=== PATIENT | male | born 1990 | race African-American/Black ===

== ENCOUNTER 2017-05-19 18:19 | Emergency (ER) | payer MEDICAID ==
[~2017-05-19] VITALS: Ht 188 cm; Wt 95.5 kg
[2017-05-19] MEDS ORDERED: ARIP2 PO (18:33)
[2017-05-19] MEDS ORDERED: MIRT15 PO (18:33)
[2017-05-19] MEDS ORDERED: LEVE250T55 PO (18:33)
[2017-05-19] MEDS ORDERED: ONDANSETRON HCL 4 MG TABLET PO ONE (20:00)
[2017-05-19 20:31] VITALS: BP 138/80
== END 2017-05-19 20:33 | disposition home or self-care (01) ==
LOC: EMS 18:20
DX: J06.9 Acute upper respiratory infection, unspecified (principal); R11.2 Nausea with vomiting, unspecified; R19.7 Diarrhea, unspecified; F17.210 Nicotine dependence, cigarettes, uncomplicated; F32.9 Major depressive disorder, single episode, unspecified
CPT/HCPCS: 99283; Q0162

== ENCOUNTER 2017-06-18 17:29 | Emergency (ER) | payer MEDICAID ==
[~2017-06-18] VITALS: Ht 188 cm; Wt 90.9 kg
[~2017-06-18 17:29] MED LIST: ARIP2 PO; LEVE250T55 PO; MIRT15 PO
[2017-06-18] MEDS ORDERED: SODIUM CHLORIDE 0.9% 1,000 ML IV ONE (18:00)
[2017-06-18 18:15] LABS: BASOPHILS % (AUTO) 1.1 % (0.0-2.0); EOSINOPHILS % (AUTO) 0.6 % (1.0-6.0); HEMATOCRIT 48.5 % (41-53); HEMOGLOBIN 16.5 g/dL (13.5-17.5); LYMPHOCYTES % (AUTO) 37.1 % (22.0-44.0); MEAN CORPUSCULAR HEMOGLOBIN 28.1 pg (26.0-34.0); MEAN CORPUSCULAR HGB CONC 34.1 G/dL (31.0-37.0); MEAN CORPUSCULAR VOLUME 82 fL (80-100); MONOCYTES # (AUTO) 0.5 K/uL (0.1-1.0); MONOCYTES % (AUTO) 8.9 % (2.0-9.0); NEUTROPHILS # (AUTO) 2.9 K/uL (1.8-7.7); NEUTROPHILS % (AUTO) 52.3 % (40.0-70.0); PLATELET COUNT (AUTO) 247 K/uL (150-450); RED CELL DISTRIBUTION WIDTH 14.4 % (11.5-14.5)
[2017-06-18] MEDS ORDERED: ONDANSETRON HCL 4 MG/2 ML VIAL IVP ONE (18:15)
[2017-06-18 18:40] LABS: ANION GAP 9 mmol/L (8-16); CALCIUM, TOTAL 9.5 mg/dL (8.8-10.5); CARBON DIOXIDE 30 mmol/L (22-29); CHLORIDE 102 mmol/L (98-107); CREATININE 1.03 mg/dL (0.60-1.30); GLOMERULAR FILTR. RATE CALC > 60 mL/min (>60); GLUCOSE,RANDOM 92 mg/dL (70-110); POTASSIUM 4.2 mmol/L (3.5-5.1); SODIUM SERUM 141 mmol/L (136-145); UREA NITROGEN, BLOOD 7 mg/dL (7-18)
[2017-06-18 18:45] LABS: ALANINE AMINOTRANSFERASE 47 U/L (12-78); ALBUMIN 4.1 g/dL (3.4-5.0); ALKALINE PHOSPHATASE 73 U/L (46-116); ASPARTATE AMINOTRANSFERASE 29 U/L (15-37); BILIRUBIN,TOTAL 1.6 mg/dL (0.1-1.0); LIPASE 74 U/L (73-393); TOTAL PROTEIN, SERUM 7.6 g/dL (6.4-8.2)
[2017-06-18 21:28] VITALS: BP 135/80
[2017-06-18] MEDS ORDERED: IBUPROFEN 600 MG TABLET PO ONE (21:45)
== END 2017-06-18 22:34 | disposition home or self-care (01) ==
LOC: EMS 17:32
DX: R10.13 Epigastric pain (principal); R11.2 Nausea with vomiting, unspecified; R51 Headache; F17.210 Nicotine dependence, cigarettes, uncomplicated
CPT/HCPCS: 36415; 70450; 80053; 83690; 85025; 96361; 96374; 99285; J2405; J7030

== ENCOUNTER 2017-06-21 14:06 | Emergency (ER) | payer MEDICAID ==
[~2017-06-21] VITALS: Ht 185.4 cm; Wt 94.0 kg
[~2017-06-21 14:06] MED LIST changes: -ARIP2 PO; -MIRT15 PO
[2017-06-21] MEDS ORDERED: MIRT30TA7 PO (14:54)
[2017-06-21] MEDS ORDERED: LEVE500T8 PO (14:54)
[2017-06-21] MEDS ORDERED: HYDR-3114 PO (14:54)
[2017-06-21] MEDS ORDERED: ONDA4TAB4 PO (14:54)
[2017-06-21] MEDS ORDERED: MIRT15TA PO (14:54)
[2017-06-21] MEDS ORDERED: ARIP15TA7 PO (14:54)
[2017-06-21] MEDS ORDERED: FLUO-125 PO (14:55)
[2017-06-21] MEDS ORDERED: ARIP15TA2 PO (14:55)
[2017-06-21] MEDS ORDERED: LEVE250T PO (14:55)
[2017-06-21] MEDS ORDERED: LevETIRAcetam 500 MG TABLET PO ONE (15:00)
[2017-06-21 15:26] LABS: ANION GAP 6 mmol/L (8-16); CARBON DIOXIDE 28 mmol/L (22-29); CHLORIDE 104 mmol/L (98-107); CREATININE 0.88 mg/dL (0.60-1.30); GLOMERULAR FILTR. RATE CALC > 60 mL/min (>60); GLUCOSE,RANDOM 118 mg/dL (70-110); POTASSIUM 3.5 mmol/L (3.5-5.1); SODIUM SERUM 138 mmol/L (136-145); UREA NITROGEN, BLOOD 9 mg/dL (7-18)
[2017-06-21 15:29] LABS: BASOPHILS % (AUTO) 1.3 % (0.0-2.0); EOSINOPHILS % (AUTO) 0.7 % (1.0-6.0); HEMATOCRIT 44.6 % (41-53); HEMOGLOBIN 15.1 g/dL (13.5-17.5); LYMPHOCYTES # (AUTO) 1.4 K/uL (1.0-4.8); MEAN CORPUSCULAR HEMOGLOBIN 28.1 pg (26.0-34.0); MEAN CORPUSCULAR HGB CONC 33.9 G/dL (31.0-37.0); MEAN CORPUSCULAR VOLUME 83 fL (80-100); MONOCYTES # (AUTO) 0.4 K/uL (0.1-1.0); NEUTROPHILS # (AUTO) 2.5 K/uL (1.8-7.7); PLATELET COUNT (AUTO) 245 K/uL (150-450); RED BLOOD CELL COUNT(AUTO) 5.39 MIL/uL (4.50-5.90); RED CELL DISTRIBUTION WIDTH 14.1 % (11.5-14.5)
[2017-06-21 15:32] LABS: ALANINE AMINOTRANSFERASE 41 U/L (12-78); ALBUMIN 3.6 g/dL (3.4-5.0); ALKALINE PHOSPHATASE 65 U/L (46-116); ASPARTATE AMINOTRANSFERASE 25 U/L (15-37); BILIRUBIN,TOTAL 0.9 mg/dL (0.1-1.0); TOTAL PROTEIN, SERUM 6.8 g/dL (6.4-8.2)
[2017-06-21 16:05] VITALS: BP 124/67
== END 2017-06-21 16:57 | disposition home or self-care (01) ==
LOC: EMS 14:07
DX: G40.909 Epilepsy, unspecified, not intractable, without status epilepticus (principal); F17.210 Nicotine dependence, cigarettes, uncomplicated; Z91.14 Patient's other noncompliance with medication regimen; Z88.6 Allergy status to analgesic agent; Z88.8 Allergy status to other drugs, medicaments and biological substances
CPT/HCPCS: 82962; 99284

== ENCOUNTER 2017-08-12 20:54 | Inpatient (IN) | payer MEDICAID, OTHER ==
[~2017-08-12] VITALS: Ht 188 cm; Wt 113.6 kg
[~2017-08-12 20:54] MED LIST changes: +ARIP15TA2 PO; +FLUO-125 PO; +HYDR-3114 PO; -LEVE250T55 PO; +LEVE500T8 PO; +MIRT15TA PO; +MIRT30TA7 PO; +ONDA4TAB4 PO
[2017-08-12] MEDS ORDERED: MIRT15 PO (21:38)
[2017-08-12] MEDS ORDERED: BUSP15 PO (21:38)
[2017-08-12] MEDS ORDERED: PROZ10 PO (21:38)
[2017-08-13 01:01] LABS: BASOPHILS % (AUTO) 1.3 % (0.0-2.0); EOSINOPHILS % (AUTO) 1.1 % (1.0-6.0); HEMATOCRIT 46.6 % (41-53); HEMOGLOBIN 16.1 g/dL (13.5-17.5); LYMPHOCYTES # (AUTO) 2.8 K/uL (1.0-4.8); LYMPHOCYTES % (AUTO) 38.8 % (22.0-44.0); MEAN CORPUSCULAR HGB CONC 34.6 G/dL (31.0-37.0); MEAN CORPUSCULAR VOLUME 84 fL (80-100); MONOCYTES # (AUTO) 0.7 K/uL (0.1-1.0); MONOCYTES % (AUTO) 9.2 % (2.0-9.0); NEUTROPHILS # (AUTO) 3.6 K/uL (1.8-7.7); NEUTROPHILS % (AUTO) 49.6 % (40.0-70.0); PLATELET COUNT (AUTO) 290 K/uL (150-450); RED BLOOD CELL COUNT(AUTO) 5.55 MIL/uL (4.50-5.90); RED CELL DISTRIBUTION WIDTH 14.2 % (11.5-14.5)
[2017-08-13 01:12] LABS: ANION GAP 9 mmol/L (8-16); CALCIUM, TOTAL 9.1 mg/dL (8.8-10.5); CARBON DIOXIDE 30 mmol/L (22-29); CHLORIDE 103 mmol/L (98-107); GLOMERULAR FILTR. RATE CALC > 60 mL/min (>60); GLUCOSE,RANDOM 98 mg/dL (70-110); POTASSIUM 3.9 mmol/L (3.5-5.1); SODIUM SERUM 142 mmol/L (136-145); UREA NITROGEN, BLOOD 9 mg/dL (7-18)
[2017-08-13 01:18] LABS: ALANINE AMINOTRANSFERASE 62 U/L (12-78); ALBUMIN 3.9 g/dL (3.4-5.0); ALKALINE PHOSPHATASE 85 U/L (46-116); ASPARTATE AMINOTRANSFERASE 23 U/L (15-37); BILIRUBIN,TOTAL 1.2 mg/dL (0.1-1.0); TOTAL PROTEIN, SERUM 7.9 g/dL (6.4-8.2)
[2017-08-13 02:35] LABS: AMPHET/METH SCREEN,URINE NEGATIVE (NEGATIVE); BARBITURATE SCREEN, URINE NEGATIVE (NEGATIVE); BENZODIAZEPINES SCREEN,URINE NEGATIVE (NEGATIVE); CANNABINOID SCREEN,URINE POSITIVE (NEGATIVE); COCAINE SCREEN,URINE NEGATIVE (NEGATIVE); METHADONE SCREEN, URINE NEGATIVE (NEGATIVE); OPIATE SCREEN,URINE NEGATIVE (NEGATIVE)
[2017-08-13 02:36] LABS: PHENCYCLIDINE SCREEN,URINE NEGATIVE (NEGATIVE)
[2017-08-13] MEDS ORDERED: OLANZapine 5 MG RAPDIS TABLET PO PRN (05:30)
[2017-08-13] MEDS ORDERED: LORazepam 2 MG TABLET PO PRN (05:30)
[2017-08-13] MEDS ORDERED: ZOLPIDEM TARTRATE 10 MG TABLET PO PRN (05:30)
[2017-08-13 17:00] VITALS: BP 120/89
[2017-08-13] MEDS ORDERED: MAG HYDROX/AL HYDROX/SIMETH ES 30 ML SUSPENSION UDCUP PO PRN (17:00)
[2017-08-13] MEDS ORDERED: HydrOXYzine PAMOATE 50 MG CAPSULE PO PRN (17:00)
[2017-08-13] MEDS ORDERED: PROMETHAZINE HCL 25 MG TABLET PO PRN (17:00)
[2017-08-13] MEDS ORDERED: ACETAMINOPHEN 325 MG TABLET PO PRN (17:00)
[2017-08-13] MEDS ORDERED: LOPERAMIDE HCL 2 MG CAPSULE PO PRN (17:00)
[2017-08-13] MEDS ORDERED: TUBERCULIN, PURIFIED PROTEIN DERIVATIVE 5 TU/0.1 ML SYG ID ONE (17:00)
[2017-08-13] MEDS ORDERED: MAGNESIUM HYDROXIDE SUSPENSION 30 ML UDCUP PO PRN (17:00)
[2017-08-13 20:06] VITALS: BP 120/87
[2017-08-13] MEDS: THIAMINE HCL 100 MG TABLET PO SCH (20:43)
[2017-08-13] MEDS ORDERED: DIVALPROEX SODIUM 500 MG ER TABLET PO SCH (21:00)
[2017-08-13] MEDS ORDERED: OLANZapine 5 MG RAPDIS TABLET PO SCH (21:00)
[2017-08-14 05:38] LABS: CHOL/HDL RATIO 4.6 (4.2-7.3)
[2017-08-14 07:54] VITALS: BP 111/62
[2017-08-14] MEDS: THIAMINE HCL 100 MG TABLET PO SCH ×2 (08:46→16:30)
[2017-08-14] MEDS: FOLIC ACID 1 MG TABLET PO SCH (08:46)
[2017-08-14] MEDS: NALTREXONE HCL 50 MG TABLET PO SCH (08:46)
[2017-08-14] MEDS: MULTIVITAMINS WITH MINERALS, THERAPEUTIC TABLET PO SCH (08:46)
[2017-08-14] MEDS: NICOTINE 21 MG/24 HOUR PATCH TD SCH (08:47)
[2017-08-14] MEDS ORDERED: FLUoxetine HCL 20 MG CAPSULE PO SCH (09:00)
[2017-08-14 10:39] VITALS: BP 114/65
[2017-08-14 16:19] VITALS: BP 130/75
[2017-08-14] MEDS: LevETIRAcetam 500 MG TABLET PO SCH (16:30)
[2017-08-14] MEDS ORDERED: QUEtiapine FUMARATE 100 MG TABLET PO PRN (17:15)
[2017-08-14] MEDS ORDERED: FluvoxaMINE MALEATE 50 MG TABLET PO SCH (21:00)
[2017-08-14] MEDS: GABAPENTIN 300 MG CAPSULE PO SCH (21:36)
[2017-08-14] MEDS: ARIPiprazole 15 MG TABLET PO SCH (21:36)
[2017-08-15 06:51] VITALS: BP 119/72
[2017-08-15 08:38] VITALS: BP 113/75
[2017-08-15] MEDS: NICOTINE 21 MG/24 HOUR PATCH TD SCH (09:10)
[2017-08-15] MEDS: FOLIC ACID 1 MG TABLET PO SCH (09:10)
[2017-08-15] MEDS: MULTIVITAMINS WITH MINERALS, THERAPEUTIC TABLET PO SCH (09:10)
[2017-08-15] MEDS: NALTREXONE HCL 50 MG TABLET PO SCH (09:10)
[2017-08-15] MEDS: LevETIRAcetam 500 MG TABLET PO SCH ×2 (09:10→16:10)
[2017-08-15] MEDS: THIAMINE HCL 100 MG TABLET PO SCH ×2 (09:10→16:10)
[2017-08-15] MEDS: GABAPENTIN 300 MG CAPSULE PO SCH ×4 (09:11→20:34)
[2017-08-15] MEDS ORDERED: ARIP15TA2 PO (14:17)
[2017-08-15] MEDS ORDERED: NALT50TA PO (14:17)
[2017-08-15] MEDS ORDERED: FLUV50 PO (14:17)
[2017-08-15] MEDS ORDERED: GABA-531 PO (14:17)
[2017-08-15] MEDS ORDERED: LEVE500T53 PO (14:17)
[2017-08-15 16:09] VITALS: BP 129/78
[2017-08-15] MEDS: ARIPiprazole 15 MG TABLET PO SCH (20:34)
[2017-08-15] MEDS ORDERED: FluvoxaMINE MALEATE 50 MG TABLET PO SCH (21:00)
[2017-08-16 05:34] VITALS: BP 110/63
[2017-08-16] MEDS ORDERED: FLUV50 PO (07:44)
[2017-08-16] MEDS ORDERED: GABA-531 PO (07:44)
[2017-08-16] MEDS ORDERED: NALT50TA6 PO (07:44)
[2017-08-16 08:49] VITALS: BP 122/88
[2017-08-16] MEDS: THIAMINE HCL 100 MG TABLET PO SCH (08:52)
[2017-08-16] MEDS: MULTIVITAMINS WITH MINERALS, THERAPEUTIC TABLET PO SCH (08:53)
[2017-08-16] MEDS: GABAPENTIN 300 MG CAPSULE PO SCH (08:53)
[2017-08-16] MEDS: NICOTINE 21 MG/24 HOUR PATCH TD SCH (08:53)
[2017-08-16] MEDS: LevETIRAcetam 500 MG TABLET PO SCH (08:53)
[2017-08-16] MEDS: NALTREXONE HCL 50 MG TABLET PO SCH (08:53)
[2017-08-16] MEDS: FOLIC ACID 1 MG TABLET PO SCH (08:53)
== END 2017-08-16 11:00 | disposition home or self-care (01) | DRG 750 ==
LOC: EMS 20:55 → AHU 08-13 15:35 → B2S 08-14 14:00
PROVIDERS: ADMIT Psychiatry & Neurology Psychiatry; ATTEND Psychiatry & Neurology Psychiatry
DX: F25.9 Schizoaffective disorder, unspecified (principal); R45.851 Suicidal ideations; G40.409 Other generalized epilepsy and epileptic syndromes, not intractable, without status epilepticus; Z91.19 Patient's noncompliance with other medical treatment and regimen; Z59.0 Homelessness; E66.9 Obesity, unspecified; F31.9 Bipolar disorder, unspecified; F17.210 Nicotine dependence, cigarettes, uncomplicated; F12.10 Cannabis abuse, uncomplicated; Z65.3 Problems related to other legal circumstances; Z72.89 Other problems related to lifestyle; Z79.899 Other long term (current) drug therapy; Z88.8 Allergy status to other drugs, medicaments and biological substances; Z91.5 Personal history of self-harm; Z68.32 Body mass index [BMI] 32.0-32.9, adult
CPT/HCPCS: 99285; G0480

== ENCOUNTER 2018-06-18 15:54 | Emergency (ER) | payer MEDICAID, OTHER ==
[~2018-06-18] VITALS: Ht 188 cm; Wt 80.5 kg
[~2018-06-18 15:54] MED LIST changes: -FLUO-125 PO; +FLUV50 PO; +GABA-531 PO; -HYDR-3114 PO; +LEVE500T53 PO; -MIRT15TA PO; -MIRT30TA7 PO; +NALT50TA PO; +NALT50TA6 PO; -ONDA4TAB4 PO
[2018-06-18 16:29] VITALS: BP 153/100
== END 2018-06-18 17:29 | disposition left against medical advice (07) ==
LOC: EMS 15:55
DX: Z53.21 Procedure and treatment not carried out due to patient leaving prior to being seen by health care provider (principal)

== ENCOUNTER 2018-06-18 19:56 | Emergency (ER) | payer MEDICAID, OTHER ==
[~2018-06-18] VITALS: Ht 188 cm; Wt 81.8 kg
[2018-06-18 20:03] VITALS: BP 131/106
[2018-06-18] MEDS ORDERED: IBUPROFEN 600 MG TABLET PO ONE (23:00)
[2018-06-18] MEDS ORDERED: OSELTAMIVIR PHOSPHATE 75 MG CAPSULE PO ONE (23:00)
[2018-06-18] MEDS ORDERED: BENZONATATE 100 MG CAPSULE PO ONE (23:00)
== END 2018-06-18 23:24 | disposition home or self-care (01) ==
LOC: EMS 19:57
DX: J11.1 Influenza due to unidentified influenza virus with other respiratory manifestations (principal); F31.9 Bipolar disorder, unspecified; F20.9 Schizophrenia, unspecified; F17.210 Nicotine dependence, cigarettes, uncomplicated; F12.90 Cannabis use, unspecified, uncomplicated; Z79.899 Other long term (current) drug therapy; Z88.6 Allergy status to analgesic agent; Z88.8 Allergy status to other drugs, medicaments and biological substances

== ENCOUNTER 2022-08-06 14:41 | Emergency (ER) | payer OTHER ==
[~2022-08-06] VITALS: Ht 185.4 cm; Wt 77.3 kg
[~2022-08-06 14:41] MED LIST changes: -ARIP15TA2 PO; -FLUV50 PO; -GABA-531 PO; -LEVE500T53 PO; -NALT50TA PO; -NALT50TA6 PO
[2022-08-06 14:49] VITALS: BP 103/34
[2022-08-06] MEDS ORDERED: IBUPROFEN 600 MG TABLET PO ONE (18:30)
[2022-08-06] MEDS ORDERED: LIDOCAINE 1% 10 ML VIAL PERC ONE (18:30)
[2022-08-06] MEDS ORDERED: PERTUSS(ACELL),DIPH,TET VAC/PF 0.5 ML SYRINGE IM. ONE (18:30)
[2022-08-06] MEDS ORDERED: NEOMYCIN/BACITRACIN/POLYMYXIN B OINTMENT PACKET TP ONE (19:45)
[2022-08-06] MEDS ORDERED: TraMADol HCL 50 MG TABLET PO ONE (19:45)
[2022-08-06] MEDS ORDERED: CEPH-558 PO (19:51)
[2022-08-06] MEDS ORDERED: BACI28OI9 TP (19:52)
== END 2022-08-06 20:16 | disposition home or self-care (01) ==
LOC: EMS 14:42
DX: S61.412A Laceration without foreign body of left hand, initial encounter (principal); R56.9 Unspecified convulsions; F31.9 Bipolar disorder, unspecified; F20.9 Schizophrenia, unspecified; F17.210 Nicotine dependence, cigarettes, uncomplicated; F12.90 Cannabis use, unspecified, uncomplicated; W01.0XXA Fall on same level from slipping, tripping and stumbling without subsequent striking against object, initial encounter; Y93.K1 Activity, walking an animal; Y92.89 Other specified places as the place of occurrence of the external cause; Y99.8 Other external cause status
CPT/HCPCS: 99284; 73130; 90715; 90471; 12001; J3490